=== PATIENT | female | born 1970 | race Caucasian/White ===

== ENCOUNTER 2018-11-04 10:24 | Emergency (ER) | payer OTHER ==
[~2018-11-04] VITALS: Ht 162.6 cm; Wt 81.9 kg
[~2018-11-04 10:24] MED LIST: ONDA4TAB8 PO; TRAM50TA2 PO
[2018-11-04 10:29] VITALS: Ht 162.6 cm; Wt 81.9 kg
[2018-11-04] MEDS ORDERED: SOD CHLORIDE 0.9% 1,000 ML IV STA (11:05)
[2018-11-04] MEDS ORDERED: ONDANSETRON 4 MG INJ IV STA (11:05)
[2018-11-04] MEDS ORDERED: FAMOTIDINE 20 MG INJ IV STA (11:05)
[2018-11-04] MEDS ORDERED: KETOROLAC 15 MG INJ IV STA (11:05)
--- NOTE | 2018-11-04 11:05 | ERD ---
ER Documentation Chief Complaint Chief Complaint ap x 2 days with nausea HPI 48-year-old female with history of GERD/gastritis presents to the ED complaining of a 2-day history of moderate to severe, crampy, intermittent epigastric abdominal pain with nausea but no vomiting, diarrhea or constipation. No hematochezia or melena. Symptoms exacerbated by eating. No relieving factors. No chest pain, palpitations or shortness of breath. Denies dysuria, polyuria hematuria. Last menstrual period began yesterday. No fevers or chills. ROS All systems reviewed and are negative except as per history of present illness. Medications Home Meds Active Scripts Ondansetron Hcl* (Zofran*) 4 Mg Tablet, 4 MG PO Q6H for NAUSEA AND/OR VOMITING, #12 TAB Prov:ANNETTE DAY MD 11/04/18 Tramadol HCl (Tramadol HCl) 50 Mg Tablet, 50 MG PO Q6 PRN for PAIN, #12 TAB Prov:ANNETTE DAY MD 11/04/18 Allergies Allergies: Coded Allergies: No Known Allergy (Unverified , 11/04/18) PMhx/Soc History of Surgery: No Anesthesia Reaction: No Hx Neurological Disorder: No Hx Respiratory Disorders: No Hx Cardiac Disorders: No Hx Psychiatric Problems: Yes (DEPRESSION/Anxiety) Hx Miscellaneous Medical Probl: Yes (GERD/gastritis) Hx Alcohol Use: No Hx Substance Use: No Hx Tobacco Use: No FmHx No family history relevant to presenting complaint Physical Exam Vitals Vital Signs Date Temp Pulse Resp B/P (MAP) Pulse Ox O2 O2 Flow FiO2 Time Delivery Rate 11/04/18 98.0 51 20 131/61 99 Room Air 13:41 (84) 11/04/18 45 18 118/60 100 Room Air 11:51 (79) 11/04/18 98.1 68 18 129/62 100 10:29 (84) Physical Exam Const: No acute distress Head: Atraumatic Eyes: Normal Conjunctiva. Sclera anicteric. ENT: Normal External Ears, Nose and Mouth. Neck: Full range of motion. No meningismus. Resp: Clear to auscultation bilaterally Cardio: Regular rate and rhythm, no murmurs Abd: Soft, mild epigastric and right upper quadrant tenderness. Negative Nj sign. No right lower quadrant tenderness. No rebound or guarding. No masses. Skin: No petechiae or rashes Back: No midline or flank tenderness Ext: No cyanosis, or edema Neur: Awake and alert. No focal deficit. Psych: Normal Mood and Affect Result Diagram: 11/04/18 1120 11/04/18 1120 Results 24 hrs Laboratory Tests Test 11/04/18 11:20 11/04/18 11:35 White Blood Count 4.8 10^3/ul Red Blood Count 4.13 10^6/ul Hemoglobin 12.4 g/dl Hematocrit 38.8 % Mean Corpuscular Volume 93.9 fl Mean Corpuscular Hemoglobin 30.0 pg Mean Corpuscular Hemoglobin Concent 32.0 g/dl Red Cell Distribution Width 13.5 % Platelet Count 245 10^3/UL Mean Platelet Volume 9.5 fl Immature Granulocytes % 0.000 % Neutrophils % 60.6 % Lymphocytes % 30.1 % Monocytes % 7.4 % Eosinophils % 1.3 % Basophils % 0.6 % Nucleated Red Blood Cells % 0.0 /100WBC Immature Granulocytes # 0.000 10^3/ul Neutrophils # 2.9 10^3/ul Lymphocytes # 1.4 10^3/ul Monocytes # 0.4 10^3/ul Eosinophils # 0.1 10^3/ul Basophils # 0.0 10^3/ul Nucleated Red Blood Cells # 0.0 10^3/ul Urine Color YELLOW Urine Clarity SLIGHTLY CLOUDY Urine pH 5.0 Urine Specific [place] 1.011 Urine Ketones NEGATIVE mg/dL Urine Nitrite NEGATIVE mg/dL Urine Bilirubin NEGATIVE mg/dL Urine Urobilinogen NEGATIVE mg/dL Urine Leukocyte Esterase NEGATIVE [place]/ul Urine Microscopic RBC > 182 /HPF Urine Microscopic WBC 20 /HPF Urine Squamous Epithelial Cells FEW /HPF Urine Bacteria FEW /HPF Urine Mucus FEW /HPF Urine Hemoglobin 3+ mg/dL Urine Glucose NEGATIVE mg/dL Urine Total Protein 1+ mg/dl Sodium Level 140 mmol/L Potassium Level 3.8 mmol/L Chloride Level 107 mmol/L Carbon Dioxide Level 26 mmol/L Anion Gap 7 Blood Urea Nitrogen 19 mg/dl Creatinine 0.73 mg/dl Est Glomerular Filtrat Rate mL/min > 60 mL/min Glucose Level 89 mg/dl Calcium Level 9.7 mg/dl Total Bilirubin 0.5 mg/dl Direct Bilirubin 0.00 mg/dl Indirect Bilirubin 0.5 mg/dl Aspartate Amino Transf (AST/SGOT) 21 IU/L Alanine Aminotransferase (ALT/SGPT) 18 IU/L Alkaline Phosphatase 54 IU/L Troponin I < 0.012 ng/ml Total Protein 8.2 g/dl Albumin 4.2 g/dl Globulin 4.00 g/dl Albumin/Globulin Ratio 1.05 Lipase 131 U/L POC Beta HCG, Qualitative NEGATIVE Current Medications Medications Dose Sig/Paul Start Time Status Last (Trade) Ordered Route PRN Stop Time Admin Dose Reason Admin Sodium 1,000 ml @ Q1H STAT 11/04/18 DC 11/04/18 Chloride 1,000 mls/hr IV 11:05 11/04/18 11:41 12:04 Ondansetron 4 mg ONCE STAT 11/04/18 DC 11/04/18 HCl (Zofran IV 11:05 11/04/18 11:43 Inj) 11:07 Famotidine 20 mg ONCE STAT 11/04/18 DC 11/04/18 (Pepcid Iv) IV 11:05 11/04/18 11:43 11:07 Ketorolac 15 mg ONCE STAT 11/04/18 DC 11/04/18 Tromethamine IV 11:05 11/04/18 11:43 (Toradol) 11:07 Procedures/MDM DOCUMENTS REVIEWED: ED nurse, [ ] EKG: Time: 11:46. Sinus bradycardia. Ventricular rate 45. Normal MD QRS. No ectopy. My Interpretation IMAGING: PROCEDURE: US abdomen CLINICAL INDICATION: Abdominal Pain TECHNIQUE: Multiple real-time images were acquired of the patient's abdomen utilizing a high resolution transducer. COMPARISON: None FINDINGS: The right hepatic lobe appears normal and measures 13.7 cm. The left hepatic lobe and pancreas were not visualized secondary to overlying bowel gas. There is a large nonmobile stone within the gallbladder neck measuring 3.0 x 2.6 cm. There is no pericholecystic fluid or gallbladder wall thickening. The common bile duct measures 4.0 mm in maximal dimension. No free fluid is identified. The right kidney is normal in echogenicity and measures 13.5 cm. The no hydro nephrosis. No kidney stones are RPTAT: AA IMPRESSION: Single large nonmobile stone within the gallbladder neck measuring up to 3.0 cm. No pericholecystic fluid or gallbladder wall thickening. Physician Anai Date Time Electronically viewed and signed by Physician Anai on 11/04/2018 11:49 NS/ MEDICAL DECISION MAKIN-year-old female with history of GERD/gastritis presents to the ED complaining of a 2-day history of moderate to severe, crampy, intermittent epigastric abdominal pain with nausea but no vomiting, diarrhea or constipation. CBC unremarkable for leukocytosis or anemia. Chemistry reveals no evidence of electrolyte abnormalities, renal insufficiency or hyperglycemia. LFTs negative for hyperbilirubinemia or transaminitis. Lipase is not elevated or consistent with pancreatitis. Ultrasound consistent with cholelithiasis without cholecystitis. No fever, hyperbilirubinemia or cholangitis. EKG reveals sinus bradycardia without ischemic changes or heart block. Pain resolved with intravenous hydration, analgesics and antiemetics. Asymptomatic bradycardia. No hypotension. Stable for discharge with precautionary instructions and outpatient follow-up as counseled. Counseled patient regarding diagnostic workup, diagnosis and need for followup. Understands to return to ED if symptoms recur, worsen or any other concerns. Departure Diagnosis: Primary Impression: Abdominal pain, acute, epigastric Additional Impressions: Cholelithiasis Cholelithiasis location: gallbladder Cholecystitis presence: without cholecystitis Biliary obstruction: without biliary obstruction Qualified Codes: K80.20 - Calculus of gallbladder without cholecystitis without obstruction Biliary colic Bradycardia Condition: Stable ANNETTE DAY MD Nov 04, 2018 11:05
[2018-11-04 13:41] VITALS: BP 131/61; PULSE 51; RESP 20
== END 2018-11-04 13:43 | disposition home or self-care (01) ==
LOC: E/R 10:24
DX: R10.13 Epigastric pain (principal); K80.50 Calculus of bile duct without cholangitis or cholecystitis without obstruction; R00.1 Bradycardia, unspecified
CPT/HCPCS: 36415; 76705; 80053; 81001; 81025; 83690; 84484; 85025; 93005; 96374; 96375; J1885; J2405; J7030; Z7502; Z7610